=== PATIENT | female | born 1960 | race Caucasian/White ===

== ENCOUNTER → 2016-10-31 | Outpatient (CLI) | payer BC | LOC: COL.RAD | DX: R10.84 Generalized abdominal pain (principal); R19.7 Diarrhea, unspecified; R11.0 Nausea | CPT/HCPCS: A9541 ==

== ENCOUNTER → 2017-03-28 | Outpatient (CLI) | payer BC | LOC: MC.RAD 14:20 | DX: Z12.31 Encounter for screening mammogram for malignant neoplasm of breast (principal) ==

== ENCOUNTER → 2017-04-24 | Outpatient (CLI) | payer BC | LOC: COL.LAB 13:58 | DX: Z01.89 Encounter for other specified special examinations (principal) ==

== ENCOUNTER → 2018-04-20 | Outpatient (CLI) | payer BC | LOC: MC.RAD 14:16 | DX: Z12.31 Encounter for screening mammogram for malignant neoplasm of breast (principal) ==

== ENCOUNTER → 2019-07-06 | Outpatient (CLI) | payer BC | LOC: MC.RAD 15:29 | DX: Z12.31 Encounter for screening mammogram for malignant neoplasm of breast (principal) ==

== ENCOUNTER → 2020-07-28 | Outpatient (CLI) | payer BC | LOC: MC.RAD 08:00 | DX: Z12.31 Encounter for screening mammogram for malignant neoplasm of breast (principal) ==

== ENCOUNTER 2021-07-26 08:31 | Day surgery (SDC) | payer BC ==
[~2021-07-26] VITALS: Ht 167.6 cm; Wt 64.0 kg
[2021-07-26] MEDS ORDERED: LIPITOR 40MG TA40 MG PO (08:43)
[2021-07-26 09:17] VITALS: BP 106/68; PULSE 51; TEMP 97.7
[2021-07-26] MEDS ORDERED: ESTRACE0.5 MG BC (09:17)
[2021-07-26 11:26] VITALS: BP 108/72; PULSE 52
[2021-07-26 11:30] VITALS: BP 92/72; PULSE 50
[2021-07-26 11:45] VITALS: BP 108/63; PULSE 51
[2021-07-26 12:00] VITALS: BP 111/62; PULSE 51; TEMP 99.5
--- NOTE | 2021-07-26 12:30 | NUR ---
1110 Pt returns from endo procedure via cart and RN assist to [facility]. Pt ambulates from cart to recliner with RN assist. Monitors on and alarms set. Call light within reach. Report received from GREG Cortes. Pt alert and oriented. Pt requests coffee only. Pt denies any pain or nausea. 1145 Pt taking drink well. No complications noted. 1220 Discharge instructions given to pt and . All questions answered to their satisfaction. Handed to pt is discharge information. 1230 Pt transferred out of the hospital via wheelchair and this RN assist, to private vehicle driven by pt's .
== END 2021-07-26 12:30 | disposition home or self-care (01) ==
LOC: SDCO 08:31
DX: K63.89 Other specified diseases of intestine (principal); M19.90 Unspecified osteoarthritis, unspecified site; E78.5 Hyperlipidemia, unspecified; Z85.828 Personal history of other malignant neoplasm of skin; M81.0 Age-related osteoporosis without current pathological fracture; Z79.899 Other long term (current) drug therapy; G89.29 Other chronic pain; M54.2 Cervicalgia
CPT/HCPCS: J2704; J7030

== ENCOUNTER → 2021-10-11 | Outpatient (CLI) | payer BC ==
[~2021-10-11] MED LIST: ESTRACE0.5 MG BC; LIPITOR 40MG TA40 MG PO
== END ==
LOC: MC.RAD 16:44
DX: Z12.31 Encounter for screening mammogram for malignant neoplasm of breast (principal)

== ENCOUNTER → 2022-10-22 | Outpatient (CLI) | payer BC | LOC: MC.RAD 16:06 | DX: Z12.31 Encounter for screening mammogram for malignant neoplasm of breast (principal); N64.89 Other specified disorders of breast ==

== ENCOUNTER → 2022-10-25 | Outpatient (CLI) | payer BC | LOC: MC.RAD 07:30 | DX: N64.89 Other specified disorders of breast (principal) ==

== ENCOUNTER → 2023-10-27 | Outpatient (CLI) | payer BC | LOC: MC.RAD 09:40 | DX: N63.15 Unspecified lump in the right breast, overlapping quadrants (principal); N64.59 Other signs and symptoms in breast ==

== ENCOUNTER → 2023-12-11 | Outpatient (CLI) | payer BC ==
[~2023-12-11] MED LIST changes: +Iohexol 300 - 10 ML VIAL ONE; +Lidocaine PF 2% (20 MG/ML) 2 ML VIAL ONE
== END ==
LOC: MHCPAIN 08:56
DX: M54.16 Radiculopathy, lumbar region (principal)
CPT/HCPCS: J1100; Q9967

== ENCOUNTER → 2023-12-22 | Outpatient (CLI) | payer BC ==
[~2023-12-22] MED LIST changes: -Iohexol 300 - 10 ML VIAL ONE; -Lidocaine PF 2% (20 MG/ML) 2 ML VIAL ONE
== END ==
LOC: MHCPAIN 09:24
DX: M47.896 Other spondylosis, lumbar region (principal); M54.17 Radiculopathy, lumbosacral region
CPT/HCPCS: G0463

== ENCOUNTER → 2024-01-15 | Outpatient (CLI) | payer BC ==
[~2024-01-15] MED LIST changes: +Iohexol 300 - 10 ML VIAL ONE; +Lidocaine PF 2% (20 MG/ML) 2 ML VIAL ONE
== END ==
LOC: MHCPAIN 10:53
DX: M54.16 Radiculopathy, lumbar region (principal)
CPT/HCPCS: J1010; Q9967